=== PATIENT | male | born 1995 | race Caucasian/White ===

== ENCOUNTER 2017-06-20 08:21 | Inpatient (IN) ==
[2017-06-20] MEDS ORDERED: NS 1,000 ML IV ONE ×3 (08:25→12:33)
[2017-06-20] MEDS ORDERED: ZOFRAN IV ONE (08:26)
[2017-06-20] MEDS ORDERED: ZOFRAN ONE (08:27)
--- NOTE | 2017-06-20 08:50 | Diag Imaging Result Doc PS360 ---
CT HEAD W/O CONTRAST - 06/20/2017 INDICATION: brain attack TECHNIQUE: A CT dose reduction protocol was used. COMPARISON: None FINDINGS: The ventricles and sulci are normal in size and contour. No intracranial mass or hemorrhage. The skull is intact. The sinuses mastoids and middle ears are clear. IMPRESSION: Negative exam. Electronically signed by Timothy Pal 06/20/2017 8:48 AM
[2017-06-20 08:56] LABS: ALLEN TEST YES; BLOOD TYPE ARTERIAL; DRAW SITE R RADIAL; METHB 1.3 % (0.0-1.5); O2(CT) 19.9 mL/dL (15.0-23.0); PCO2(98.6) 36 mmHg (35-45); PO2(98.6) 83 mmHg (60-100); SAMPLE BLOOD; SAO2 97.9 % (95.0-100.0); THB 14.8 g/dL (11.5-17.4); pH(98.6) 7.35 (7.35-7.45)
[2017-06-20 08:59] LABS: MODALITY ROOM AIR
--- NOTE | 2017-06-20 09:14 | PROVIDER DOCUMENTATION ---
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 Passed out and unresponsive with multiple episode of N/V. Pt was diaphoretic and slightly responsive on ED arrival. No further info available. Severity: reports: moderate, severe Onset/Duration: reports: just prior to arrival Timing: reports: still present, improving Context: reports: found unresponsive by bystander, falling. denies: found unresponsive by family, low blood sugar, drug abuse, overdose, recent infection , fever, impaired speech, seizure activity Character of Altered Mental Status: reports: unresponsive, decreased responsiveness Any recent trauma/injury?: reports: none New weakness or altered sensation location:: reports: other (Unknown.) Associated Symptoms: reports: loss of consciousness, vomiting, other (Unknown) Similar Symptoms Previously?: No Recently seen or treated by another doctor?: No Review of Systems - Adult - REVIEW OF SYSTEMS - ADULT Constitutional: denies: chills, fever Eyes: reports: no symptoms reported Ears, Nose, Mouth & Throat: reports: no symptoms reported Cardiovascular: reports: no symptoms reported Respiratory: reports: no symptoms reported Gastrointestinal: reports: see HPI, nausea, vomiting Musculoskeletal: reports: no symptoms reported Integumentary: reports: no symptoms reported Neurological: reports: see HPI, syncope All Other Systems: Reviewed and Negative Past History - Adult - PAST MEDICAL HISTORY-ADULT Review of Records: reports: Old Records Reviewed, Nursing Assessment Review, Medications Reviewed, Social history reviewed & non-contributory. - SOCIAL HISTORY Smoking: denies Substance Use: none/never Alcohol Use Frequency: never Physical Exam- Neurological - Physical Exam-Neuro Initial Vital Signs Reviewed: Yes General Appearance: no apparent distress, obtunded, other (Pt is diaphoretic and clammy, with emesis at his shirt) Eye Exam: bilateral eye: PERRL, EOMI HENMT: normocephalic/atraumatic, moist mucous membranes Neck: non-tender, full range of motion Respiratory: chest non-tender, lungs clear, normal breath sounds, no pleuratic chest pain, no respiratory distress, no accessory muscle use Cardiovascular: normal peripheral pulses, regular rate, rhythm, no edema, no gallop Abdominal Exam: normal bowel sounds, non tender, soft, no organomegaly, no pulsatile mass Extremity: normal range of motion, non-tender, normal gait, 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 When asked to squeez my hand, he did it at R side, but no on L side.) Motor/Sensory: no motor deficit, no sensory deficit, no pronator drift Neurologic: other (See above) Integumentary: other (Warm and diapohoretic) - Glascow Coma Scale Best Eye Response: (4) open spontaneously Best Verbal Response: (3) inappropriate words Best Motor Response: (6) obeys commands Total Glascow Score: 13 Progress - PLAN OF CARE/RESULTS Progress/Plan/Lab Results: Vital Signs - 8 hr 06/20/17 09:00 06/20/17 10:19 06/20/17 11:11 Temperature 98.0 F Pulse Rate 90 84 75 Respiratory Rate 25 H 21 23 Blood Pressure 139/65 132/58 129/63 O2 Sat by Pulse Oximetry 95 100 100 06/20/17 12:11 Temperature Pulse Rate 67 Respiratory Rate 23 Blood Pressure 122/47 O2 Sat by Pulse Oximetry 97 Laboratory Results - last 24 hr 06/20/17 06/20/17 06/20/17 08:24 09:26 09:26 WBC 16.25 H RBC 4.89 Hgb 15.0 Hct 42.8 MCV 87.5 MCH 30.7 MCHC 35.0 RDW Std Deviation 13.1 Plt Count 292 MPV 10.3 Neut % (Auto) 85.2 H Lymph % (Auto) 7.3 L Hodgeman % (Auto) 6.6 Eos % (Auto) 0.7 Baso % (Auto) 0.2 Neut # (Auto) 13.84 H Lymph # (Auto) 1.19 L Hodgeman # (Auto) 1.08 H Eos # (Auto) 0.11 Baso # (Auto) 0.03 PT INR PTT (Actin FS) Specimen Type ARTERIAL Sample Site R RADIAL pH 7.35 pCO2 36 pO2 83 HCO3 21.0 Base Excess -5.0 L Oxyhemoglobin 95.4 ABG O2 Sat (Calculated) 19.9 ABG O2 Saturation 97.9 ABG Carboxyhemoglobin 1.40 ABG Methemoglobin 1.3 Jacob Test YES A-a O2 Difference 22.0 Total Hemoglobin 14.8 Lactate 5.60 H* Blood Gas Modality ROOM AIR FiO2 % 21.0 Sodium Potassium Chloride Carbon Dioxide Anion Gap BUN Creatinine Estimated GFR/1.73 m2 BUN/Creatinine Ratio Glucose POC Glucose Calculated Osmolality Calcium Magnesium Total Bilirubin AST ALT Alkaline Phosphatase Creatine Kinase Creatine Kinase Index CK-MB (CK-2) Troponin T Total Protein Albumin Globulin Albumin/Globulin Ratio Amylase Lipase Urine Source Urine Color Urine Turbidity Urine pH Ur Specific Bradley Urine Protein Ur Glucose (Stick) Ur Ketones (Stick) Urine Blood Urine Nitrite Urine Bilirubin Urobilinogen Dipstick Urine Leukocytes Urine WBC (Auto) Urine RBC (Auto) U Epithel Cells (Auto) Urine Bacteria (Auto) Urine Crystals Small Round Cells Urine Casts Urine Yeast-like Cells Urine Opiates Screen Ur Oxycodone Screen Urine Methadone Screen Ur Barbiturates Screen Ur Phencyclidine Scrn Ur Amphetamines Screen U Benzodiazepines Scrn Urine Cocaine Screen U Cannabinoids Screen Plasma/Serum Ethyl Alc 06/20/17 06/20/17 06/20/17 09:26 09:26 09:26 WBC RBC Hgb Hct MCV MCH MCHC RDW Std Deviation Plt Count MPV Neut % (Auto) Lymph % (Auto) Hodgeman % (Auto) Eos % (Auto) Baso % (Auto) Neut # (Auto) Lymph # (Auto) Hodgeman # (Auto) Eos # (Auto) Baso # (Auto) PT 11.3 INR 1.07 PTT (Actin FS) 26.6 Specimen Type Sample Site pH pCO2 pO2 HCO3 Base Excess Oxyhemoglobin ABG O2 Sat (Calculated) ABG O2 Saturation ABG Carboxyhemoglobin ABG Methemoglobin Jacob Test A-a O2 Difference Total Hemoglobin Lactate Blood Gas Modality FiO2 % Sodium 143 Potassium 4.5 Chloride 104 Carbon Dioxide 22 L Anion Gap 17 BUN 26 H Creatinine 1.4 H Estimated GFR/1.73 m2 > 60 BUN/Creatinine Ratio 19 Glucose 54 L POC Glucose Calculated Osmolality 287 Calcium 9.3 Magnesium Total Bilirubin 0.33 AST 24 ALT 28 Alkaline Phosphatase 77 Creatine Kinase 182 Creatine Kinase Index CK-MB (CK-2) Troponin T 0.015 Total Protein 7.4 Albumin 4.7 Globulin 2.7 Albumin/Globulin Ratio 1.7 Amylase 36 Lipase 39 Urine Source Urine Color Urine Turbidity Urine pH Ur Specific Bradley Urine Protein Ur Glucose (Stick) Ur Ketones (Stick) Urine Blood Urine Nitrite Urine Bilirubin Urobilinogen Dipstick Urine Leukocytes Urine WBC (Auto) Urine RBC (Auto) U Epithel Cells (Auto) Urine Bacteria (Auto) Urine Crystals Small Round Cells Urine Casts Urine Yeast-like Cells Urine Opiates Screen Ur Oxycodone Screen Urine Methadone Screen Ur Barbiturates Screen Ur Phencyclidine Scrn Ur Amphetamines Screen U Benzodiazepines Scrn Urine Cocaine Screen U Cannabinoids Screen Plasma/Serum Ethyl Alc 06/20/17 06/20/17 06/20/17 09:26 09:30 09:43 WBC RBC Hgb Hct MCV MCH MCHC RDW Std Deviation Plt Count MPV Neut % (Auto) Lymph % (Auto) Hodgeman % (Auto) Eos % (Auto) Baso % (Auto) Neut # (Auto) Lymph # (Auto) Hodgeman # (Auto) Eos # (Auto) Baso # (Auto) PT INR PTT (Actin FS) Specimen Type Sample Site pH pCO2 pO2 HCO3 Base Excess Oxyhemoglobin ABG O2 Sat (Calculated) ABG O2 Saturation ABG Carboxyhemoglobin ABG Methemoglobin Jacob Test A-a O2 Difference Total Hemoglobin Lactate Blood Gas Modality FiO2 % Sodium Potassium Chloride Carbon Dioxide Anion Gap BUN Creatinine Estimated GFR/1.73 m2 BUN/Creatinine Ratio Glucose POC Glucose 53 L Calculated Osmolality Calcium Magnesium 2.3 Total Bilirubin AST ALT Alkaline Phosphatase Creatine Kinase Creatine Kinase Index CK-MB (CK-2) Troponin T Total Protein Albumin Globulin Albumin/Globulin Ratio Amylase Lipase Urine Source CLEAN CATCH Urine Color YELLOW Urine Turbidity CLEAR Urine pH 6.5 Ur Specific Bradley 1.018 Urine Protein 70 A Ur Glucose (Stick) NEGATIVE Ur Ketones (Stick) TRACE A Urine Blood TRACE A Urine Nitrite NEGATIVE Urine Bilirubin NEGATIVE Urobilinogen Dipstick NORMAL Urine Leukocytes TRACE A Urine WBC (Auto) 10-20 A Urine RBC (Auto) <10 U Epithel Cells (Auto) >10 A Urine Bacteria (Auto) NEGATIVE Urine Crystals NONE SEEN Small Round Cells NONE SEEN Urine Casts GRANULAR PRESENT Urine Yeast-like Cells NONE SEEN Urine Opiates Screen Ur Oxycodone Screen Urine Methadone Screen Ur Barbiturates Screen Ur Phencyclidine Scrn Ur Amphetamines Screen U Benzodiazepines Scrn Urine Cocaine Screen U Cannabinoids Screen Plasma/Serum Ethyl Alc 06/20/17 06/20/17 06/20/17 09:43 11:08 11:08 WBC RBC Hgb Hct MCV MCH MCHC RDW Std Deviation Plt Count MPV Neut % (Auto) Lymph % (Auto) Hodgeman % (Auto) Eos % (Auto) Baso % (Auto) Neut # (Auto) Lymph # (Auto) Hodgeman # (Auto) Eos # (Auto) Baso # (Auto) PT INR PTT (Actin FS) Specimen Type Sample Site pH pCO2 pO2 HCO3 Base Excess Oxyhemoglobin ABG O2 Sat (Calculated) ABG O2 Saturation ABG Carboxyhemoglobin ABG Methemoglobin Jacob Test A-a O2 Difference Total Hemoglobin Lactate Blood Gas Modality FiO2 % Sodium Potassium Chloride Carbon Dioxide Anion Gap BUN Creatinine Estimated GFR/1.73 m2 BUN/Creatinine Ratio Glucose POC Glucose Calculated Osmolality Calcium Magnesium Total Bilirubin AST ALT Alkaline Phosphatase Creatine Kinase 232 H Creatine Kinase Index 1.9 CK-MB (CK-2) 4.40 Troponin T 0.102 H D Total Protein Albumin Globulin Albumin/Globulin Ratio Amylase Lipase Urine Source Urine Color Urine Turbidity Urine pH Ur Specific Bradley Urine Protein Ur Glucose (Stick) Ur Ketones (Stick) Urine Blood Urine Nitrite Urine Bilirubin Urobilinogen Dipstick Urine Leukocytes Urine WBC (Auto) Urine RBC (Auto) U Epithel Cells (Auto) Urine Bacteria (Auto) Urine Crystals Small Round Cells Urine Casts Urine Yeast-like Cells Urine Opiates Screen NONE DETECTED Ur Oxycodone Screen NONE DETECTED Urine Methadone Screen NONE DETECTED Ur Barbiturates Screen NONE DETECTED Ur Phencyclidine Scrn NONE DETECTED Ur Amphetamines Screen NONE DETECTED U Benzodiazepines Scrn NONE DETECTED Urine Cocaine Screen NONE DETECTED U Cannabinoids Screen NONE DETECTED Plasma/Serum Ethyl Alc Orders Category Date Time Status Cardiac Monitoring DIRECTED Care 06/20/17 08:24 Active Finger Stick Blood Sugar (ED) DIRECTED Care 06/20/17 08:24 Active [place] Cath Insertion ORDERED Care 06/20/17 08:26 Inactive Orthostatic Vital Signs NOW Care 06/20/17 12:36 Active Oxygen Therapy- ED Nursing DIRECTED Care 06/20/17 08:24 Active Saline Loc NOW Care 06/20/17 08:24 Active Regular Diet Diet 06/20/17 11:50 Active CHEST-PORTABLE [RAD] Stat Exams 06/20/17 08:[address] HEAD W/O CONTRAST [CT] Stat Exams 06/20/17 08:37 Completed A1C [A1C HGB W EST AVG GLUCOSE] [CHEM] Stat Lab 06/20/17 09:26 Received ABG [RESP] Routine Lab 06/20/17 08:24 Completed ALCOHOL BLOOD Stat Lab 06/20/17 09:26 Completed AMYLASE [CHEM] Stat Lab 06/20/17 09:26 Completed CBC WITH ELECTRONIC DIFF [HEME] Stat Lab 06/20/17 09:26 Completed CK PROFILE [SP CHEM] Stat Lab 06/20/17 09:26 Completed CK PROFILE [SP CHEM] Stat Lab 06/20/17 11:08 Completed COMPREHENSIVE METABOLIC PANEL [CHEM] Stat Lab 06/20/17 09:26 Completed LACTATE, PLASMA [CHEM] Stat Lab 06/20/17 11:31 Received LIPASE [CHEM] Stat Lab 06/20/17 09:26 Completed MAGNESIUM [CHEM] Stat Lab 06/20/17 09:26 Completed PROTIME WITH INR [COAG] Stat Lab 06/20/17 09:26 Completed PTT [COAG] Stat Lab 06/20/17 09:26 Completed TROPONIN T Stat Lab 06/20/17 09:26 Completed TROPONIN T Stat Lab 06/20/17 11:08 Completed TSH Timed Lab 06/20/17 12:38 Ordered UR CHLORIDE [URCHEM] Routine Lab 06/20/17 12:37 Ordered UR CREAT RANDOM [URCHEM] Timed Lab 06/20/17 12:37 Ordered UR OSMOLALITY [CHEM] Timed Lab 06/20/17 12:37 Ordered UR SODIUM [URCHEM] Timed Lab 06/20/17 12:37 Ordered URINALYSIS W/POSS RFLX CULT-1 [URINALYSIS] Stat Lab 06/20/17 09:43 Completed URINE CULTURE [RM] Routine Lab 06/20/17 10:28 Received URINE DRUG SCREEN MEDTOX Stat Lab 06/20/17 09:43 Completed URINE MANUAL MICROSCOPIC [URINALYSIS] Stat Lab 06/20/17 09:43 Completed 0.9% Sodium Chloride Inj [Ns] 1,000 ml Med 06/20/17 09:08 Discontinued IV 1,000 mls/hr 0.9% Sodium Chloride Inj [Ns] 1,000 ml Med 06/20/17 12:33 Active IV 1,000 mls/hr 0.9% Sodium Chloride Inj [Ns] 1,000 ml Med 06/20/17 08:25 Active IV 150 mls/hr CefTRIAXONE [Rocephin] 1 gm Med 06/20/17 10:44 Discontinued 0.9% Sodium Chloride Inj [Ns] 50 ml IV NOW Ondansetron [Zofran] Med 06/20/17 08:27 Discontinued 4 mg .ROUTE .STK-MED ONE Ondansetron [Zofran] Med 06/20/17 08:26 Discontinued 8 mg IV NOW ONE Pulse Oximetry Stat Oth 06/20/17 08:24 Active EKG [EKG] Stat Ther 06/20/17 08:24 Ordered EKG [EKG] Stat Ther 06/20/17 12:14 Ordered Echo Spec/Color Dop W/O Contra Routine Ther 06/20/17 12:36 Ordered Transfer/Admit Order [TRANSFER] Routine Transfer 06/20/17 12:39 Ordered Result Diagrams: 06/20/17 09:26 06/20/17 09:26 - REASSESSMENT Reassessment #1 Time Reassessed: 09:00 Status: improving (Pt woke up with A&O X 4. 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 Did not remember anything else. On PE, no focal weakness and reports no pain.) - CONSULTS/PCP/HOSPITALIST Notification #1 *Consult/PCP/Hospitalist*: Dr. Jang / Son Time Discussed: 12:41 Consult Disposition: Will see in ED, Admit Departure - Departure Date of Disposition Decision: 06/20/17 Time of Disposition Decision: 12:42 DIAGNOSIS: Syncope, Heat exhaustion, Elevated troponin Disposition: ADMITTED INPATIENT 09 Certified Medical Emergency: Emergent Condition: Stable Referrals and Follow-Ups: Montse Orantes MD [Primary Care Provider] - - Critical Care Note This patient required my direct & personal management of CC.: Yes Total Time (mins): 45 Critical Care Statement: This patient required my direct personal management to treat or rule out processes, the absence of which, could potentiallly result in sudden, clinically significant life or limb threatening deterioration. Attestation - Physician/ LUPE Attestation Patient care was provided by Advanced Practice Provider:: No The physician spent face to face time with patient:: Yes Advanced Practice Provider documentation review:: Supervising physician onsite and consulted in the evaluation and care of this patient. The physician did have a face to face encounter with the patient.
--- NOTE | 2017-06-20 09:30 | Diag Imaging Result Doc PS360 ---
CHEST-PORTABLE - 06/20/2017 INDICATION: AMS TECHNIQUE: COMPARISON: None FINDINGS: The lungs are normally expanded and clear. Heart size and mediastinal contours are normal. No pneumothorax or pleural effusion. IMPRESSION: Negative exam. Electronically signed by Timothy Pal 06/20/2017 9:27 AM
[2017-06-20 09:48] LABS: BASO% 0.2 % (0.0-0.8); EOS# 0.11 X1000 (0.0-0.7); EOS% 0.7 % (0.0-10.0); HEMATOCRIT 42.8 % (42.0-52.0); LYMPH# 1.19 X1000 (1.2-3.4); LYMPH% 7.3 % (20.5-51.1); MANUAL DIFF NEEDED? NO; MCH 30.7 PG (27-31); MCV 87.5 FL (81-99); MONO# 1.08 X1000 (0.11-0.59); MONO% 6.6 % (1.7-9.3); MPV 10.3 FL (7.4-10.4); NEUT% 85.2 % (42.2-75.2); PLT 292 X1000 (130-400); RBC 4.89 XMIL (4.7-6.1)
[2017-06-20 09:53] LABS: URINE SOURCE CLEAN CATCH
[2017-06-20 10:05] LABS: AGAP 17; ALBUMIN 4.7 g/dL (3.5-5.0); ALKALINE PHOSPHATASE 77 U/L (32-122); AMYLASE 36 U/L (20-200); BUN 26 mg/dL (8-22); CALCIUM 9.3 mg/dL (8.8-10.2); CHLORIDE 104 mmol/L (98-107); CK PROFILE 182 U/L (24-204); COSMO 287; GOT 24 U/L (10-34); GPT 28 U/L (10-44); LIPASE 39 U/L (13-60); POTASSIUM 4.5 mmol/L (3.5-5.1); SODIUM 143 mmol/L (136-145); TCO2 22 mmol/L (25-35); TOTAL BILIRUBIN 0.33 mg/dL (0.20-1.00); TOTAL PROTEIN 7.4 g/dL (6.3-8.3)
[2017-06-20 10:07] LABS: INR 1.07; PROTIME 11.3 Seconds (9.2-11.7); PTT 26.6 Seconds (22.0-36.0)
[2017-06-20 10:09] LABS: UR AMPHETAMINES MT NONE DETECTED (NONE DETECT); UR BARBITUATES MT NONE DETECTED (NONE DETECT); UR BENZODIAZ MT NONE DETECTED (NONE DETECT); UR CANNABIS MEDTOX NONE DETECTED (NONE DETECT); UR COCAINE MT NONE DETECTED (NONE DETECT); UR METHADONE MEDTOX NONE DETECTED (NONE DETECT); UR OPIATES MT NONE DETECTED (NONE DETECT); UR OXYCODONE MEDTOX NONE DETECTED (NONE DETECT); UR PCP MEDTOX NONE DETECTED (NONE DETECT)
[2017-06-20 10:24] LABS: BILIRUBIN URINE NEGATIVE (NEGATIVE); BLOOD URINE TRACE (NEGATIVE); COLOR YELLOW; GLUCOSE URINE NEGATIVE (NEGATIVE); LEUKOCYTES URINE TRACE (NEGATIVE); NITRITE URINE NEGATIVE (NEGATIVE); PH URINE 6.5; PROTEIN URINE 70 mg/dL (NEGATIVE); SP GRAVITY URINE 1.018; TURBIDITY URINE CLEAR (CLEAR); URINE MICRO REVIEW NEEDED? YES; UROBILINOGEN URINE NORMAL (NORMAL)
[2017-06-20 10:27] LABS: UR EPITHELIAL CELLS >10 /HPF (<10); URINE BACTERIA NEGATIVE /HPF; URINE CULTURE NEEDED? YES; URINE RBC <10 /HPF (<10)
[2017-06-20 10:32] LABS: URINE CASTS GRANULAR PRESENT; URINE CRYSTALS NONE SEEN; URINE SMALL ROUND CELLS NONE SEEN
[2017-06-20] MEDS ORDERED: ROCEPHIN 1 GM in NS 50 ML IV ONE (10:44)
[2017-06-20 12:30] LABS: CK INDEX 1.9 (0.0-2.5); CK-MB 4.4 ng/mL (0.0-5.0)
--- NOTE | 2017-06-20 12:41 | ED EKG INTERP ---
This chart was entered by Angela Miller Scribe, acting as scribe for Anyi Gracia MD. EKG Interpretation - EKG Time of EKG reading by physician:: 08:16 EKG Read and Signed by:: Anyi Garcia EKG Interpretation (*Must complete 3 of following elements*): Abnormal Rate: 93 (left ventricular hypertrophy ) Rhythm: NSR - EKG # 2 Time of EKG reading by physician:: 12:21 EKG Read and Signed by:: Anyi Garcia EKG Interpretation (*Must complete 3 of following elements*): Abnormal Rate: 74 (right axis deviation; nonspecific ST abnormality ) Rhythm: NSR Attestation - Physician/ LUPE Attestation Patient care was provided by Advanced Practice Provider:: No The physician spent face to face time with patient:: Yes Advanced Practice Provider documentation review:: Supervising physician onsite and consulted in the evaluation and care of this patient. The physician did have a face to face encounter with the patient. This chart was documented by the indicated scribe, (Angela Miller Scribe) and accurately reflects the services I performed and decisions made by Jose ren Wenli X, MD, as attested by the provider's signature.
[2017-06-20 13:15] LABS: UR CREAT RANDOM 122.1 mg/dL (14-26)
--- NOTE | 2017-06-20 14:20 | HISTORY AND PHYSICAL ---
CHIEF COMPLAINT: Syncope. HISTORY OF PRESENT ILLNESS: Mr. Olivares is a 22-year-old male with no known medical history who had a syncopal episode today while running a 7 K. The patient is very active and fit, he exercises on a daily basis, he had finished a 12 hour shift last night at [employer] and went running with his friends after work, and he reports at about 3-1/2 miles in he passed out. He was unconscious for actually quite some time, maybe around 30 minutes. He did not regain consciousness until he was in the ER. He denied any preceding chest pain. No palpitations, no presyncope. Prior to today he has not had any fevers or chills. No loss of consciousness. No chest pain. No shortness of breath. No orthopnea. No belly pain. No nausea, vomiting, diarrhea. No lower extremity edema. His mother is in the room and we spoke extensively regarding his history, she does report that at one point in his early youth he was told he had a heart murmur and apparently had a workup done which was reported as negative. Since that time, he has had a few different types of workups all of which did not report a heart murmur. Even as early as a few months ago for his new job there was no mention of a heart murmur on physical exam. Today, however there is a fairly significant 2/6 murmur heard through systole and on his EKG there is evidence of left ventricular hypertrophy. His laboratory data revealed mild renal insufficiency with a granular casts in his urine. He also had mildly elevated creatinine and his 2nd set of enzymes show an elevated troponin. At this time the patient is in no distress, in fact, he has no complaints at all. He is on telemetry and we are going to admit him to the hospital for further treatment and evaluation. PAST MEDICAL HISTORY: 1. Questionable history of a murmur in childhood. 2. Otherwise none. SURGICAL HISTORY: [place] teeth extraction. SOCIAL HISTORY: Patient does not smoke, drink or use drugs. He is very active. He exercises on a daily basis. He works at [employer]. He is single and has no children. He has a very supportive family at the bedside. FAMILY HISTORY: Significant for heart disease. His maternal grandfather had congestive heart failure. Paternal grandfather from small cell lung cancer, but also had coronary artery disease. He has paternal uncles who were diagnosed with premature coronary artery disease in their 30s with PR. REVIEW OF SYSTEMS: Fourteen-point review of systems was obtained and found to be negative with the exception of the HPI. PHYSICAL EXAMINATION: VITAL SIGNS: Blood pressure is 126/65, heart rate 78, respiratory rate is 21, O2 saturation 98% on room air. Temperature is 98.6 degrees. GENERAL: This is a well-developed, well-nourished, male, lying in hospital bed, in no acute distress. NEUROLOGIC: The patient is awake, alert, oriented. He follows commands without focal deficits. HEENT: Head is atraumatic, normocephalic. His pupils are equal, round, and reactive to light. His oral mucosa is moist. His trachea is midline. There is no JVD. CHEST: Clear to auscultation bilaterally. CV: Regular rate and rhythm. A 2/6 systolic ejection murmur noted. GI: Soft, nondistended, nontender. Bowel sounds are positive. EXTREMITIES: No edema, clubbing or cyanosis. Pulses are 2+ bilaterally. DIAGNOSTIC DATA: Head CT and chest x-ray are negative. EKG shows normal sinus rhythm, with left ventricular hypertrophy and T-wave inversion in the high lateral leads. Lab work: WBC 16.25, hemoglobin 15, hematocrit 42.8, platelet count 292,000, INR 1.07. ABG on room air pH 7.35, CO2 36, O2 83, bicarb 21, lactic acid 5.6. Sodium 143, potassium 4.5, chloride 104 , CO2 22, anion gap 17, BUN 26, creatinine 1.4. Glucose is 54. A1c is 5. Calcium 9.3, magnesium 2.3. Total bilirubin 0.33, AST 24, ALT 28, alkaline phosphatase 77. CK 232, CK MB 4.4, troponin 0.102. Albumin 4.7, TSH 1.49. Repeat lactic acid 1.3. UA shows ketones in blood and granular casts. Random creatinine in the urine 122, random sodium 115, random chloride 115, osmolality in the urine 672. ASSESSMENT AND PLAN: 1. Syncope: Concern at this time is for cardiac induced syncope. He has evidence of left ventricular hypertrophy on his EKG, audible murmur on physical exam, and he did have a syncopal episode during maximal exertion. We will admit the patient to the floor with telemetry, consult Cardiology and order an echocardiogram. We will continue to trend his enzymes and hydrate the patient. We have strongly advised the patient that he should not do any type of heavy exertion or physical activity until cleared to do so by Cardiology. 2. Acute kidney injury: Likely prerenal. We are going to give him fluid boluses, repeat his creatinine in the morning. 3. Lactic acidosis: Again, this is likely secondary to volume depletion. We will continue fluids and his repeat lactic acid is already within normal limits. 4. Leukocytosis: Likely reactive leukocytosis. No evidence of infection at this time. 5. Deep vein thrombosis prophylaxis. We will add with Lovenox. Further recommendations to follow. Dictated by GETACHEW Katz for Prakash Jang MD cc: GETACHEW Katz MD I have seen and examined patient. I have provided a face to face evaluation. I have discussed my findings with patient and his family (mother and 2 sisters who were at the bed side) Ass: Syncope likely from dehydration and exhaustion. Its unlikely to be cardiac but I think its reasonable to evaluate with echo. Will continue IV Fluids adequate rest continue telemonitor repeat labs for am. CHRISD
--- NOTE | 2017-06-20 16:00 | CONSULTATION ---
DATE OF CONSULTATION: 06/20/2017 Cardiology was consulted for syncope, abnormal cardiac enzymes. HISTORY OF PRESENT ILLNESS: Mr. Mark Oliavres is a 22-year-old, gentleman who is very active, was at work at [employer] last night, finished his late shift and went to do 7 K run from work. And he went for about 3-1/2 miles when he felt a bit dizzy and had a ahmet syncopal episode. He was subsequently helped with a co-runner and brought to the emergency room and was admitted. He was in the past noted to have a questionable heart murmur was, followed by Dr. 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 However there is no significant past medical history of any dizziness, syncope or chest pain. There is no history of premature sudden cardiac in the family. He however felt dehydrated and weak as well before he started this run. He does not complain of any palpitations. He has never had palpitations. He was very active through his school years, having played football, basketball, and track and field, and never had these symptoms in the past. Even at work, since has finished school he has been active and running as his usual and normal form of exercise. PAST MEDICAL/PAST SURGICAL HISTORY: [place] tooth extraction. SOCIAL HISTORY: Patient does not smoke, does not drink. There is no history of recreational drug abuse. He is very active, works out on a daily basis. He has a very supportive family. FAMILY HISTORY: His father had heart failure. Grandparents of small cell carcinoma and CAD. He has paternal uncles who were diagnosed to have premature artery disease in their 30s. REVIEW OF SYSTEMS: Fourteen point review of system was done.GI System: There is no history of nausea, vomiting, diarrhea. Central Nervous System: No focal weakness to suggest a CVA. System: There is no dysuria or hematuria. Respiratory System: There is no history of cough, expectoration, hemoptysis. There is no history of fevers or chills. Endocrine System: Stable. PHYSICAL EXAMINATION: Vital Signs: Blood pressure was 129/63. Cardiovascular System: Normal jugular venous pressure. There was no thyromegaly. No carotid bruit. First and second heart sounds were heard. There is faint systolic murmur. Respiratory System: Normal air entry. There is no crepitations or rhonchi. Abdomen: Soft, nontender. There was no guarding or rigidity. Bowel sounds were heard. Central nervous system: Alert and was moving all 4 extremities. Extremities: Examination of extremities revealed no pedal edema. HEENT: Atraumatic, normocephalic. Pupils were equal and reacting to light. LABORATORY EXAMINATION: WBC 6.25, hemoglobin 15, hematocrit 42, platelet count of 292,000. Chemistry: Sodium 143, potassium 4.5, BUN 26, creatinine 1.4. CK 182. First troponin 0.015. Second CK 232, with a CK-MB of 4.4, with a troponin abnormal at 0.102. IMAGING: Chest x-ray was unremarkable. CT scan of his head was negative. Electrocardiogram revealed normal sinus rhythm, early repolarization pattern. ASSESSMENT AND PLAN: Mr. Sanchez Olivares is a 22-year-old, gentleman, in very good health, otherwise very active, played multiple sports during his school years as well as continues to run on a regular basis. Worked 3rd shift and subsequently went to do a 7 K run, had a syncopal episode in 3-1/2 miles into running. His laboratory examination revealed a mild renal insufficiency, creatinine of 1.4, probably secondary to dehydration. As far as this episode of syncope is concerned, it is probably related to dehydration. However he has an abnormal troponin, 1st being normal, 2nd being abnormal at 0.102. He denies any chest pain. RECOMMENDATIONS: 1. We will get an echocardiogram to assess cardiac and valvular function. 2. We will get 3 more sets of serial cardiac enzymes to see the trend in his troponin as well as we will check a BMP in the morning after hydration to see what his renal function is. Further recommendations pending the renal function as well as the cardiac enzymes panel. Of note, maybe that given this we may need to rule out an anomalous coronary arteries as well to account for his symptoms. However further testing we will base on the lab work as mentioned above. Thank you for the consult. We will follow hospital course. cc: Wyatt Curry MD [facility]
[2017-06-20 16:46] LABS: CK INDEX 1.9 (0.0-2.5); CK-MB 8.64 ng/mL (0.0-5.0)
[2017-06-20] MEDS: NS 1,000 ML IV SCH (17:10)
[2017-06-20 20:21] LABS: CK INDEX 1.7 (0.0-2.5); CK-MB 9.53 ng/mL (0.0-5.0)
[2017-06-20] MEDS ORDERED: TYLENOL PO PRN (21:58)
[2017-06-20 22:46] LABS: CK INDEX 1.5 (0.0-2.5); CK-MB 9.33 ng/mL (0.0-5.0)
[2017-06-21] MEDS: NS 1,000 ML IV SCH (02:05)
[2017-06-21 03:42] LABS: CK INDEX 1.5 (0.0-2.5); CK-MB 8.16 ng/mL (0.0-5.0)
[2017-06-21 05:51] LABS: MANUAL DIFF NEEDED? NO
[2017-06-21 05:54] LABS: BASO% 0.3 % (0.0-0.8); EOS# 0.15 X1000 (0.0-0.7); HEMATOCRIT 38.5 % (42.0-52.0); HEMOGLOBIN 13.1 g/dL (14.0-18.0); IMM GRAN# 0.04 X1000 (0.0-0.04); IMM GRAN% 0.5 % (0.0-0.5); LYMPH# 1.82 X1000 (1.2-3.4); MCH 29.7 PG (27-31); MCV 87.3 FL (81-99); MONO# 0.94 X1000 (0.11-0.59); MONO% 12.4 % (1.7-9.3); MPV 10.3 FL (7.4-10.4); NEUT% 60.8 % (42.2-75.2); PLT 232 X1000 (130-400); RBC 4.41 XMIL (4.7-6.1)
[2017-06-21 06:47] LABS: AGAP 11; BUN 12 mg/dL (8-22); CALCIUM 8.2 mg/dL (8.8-10.2); CHLORIDE 103 mmol/L (98-107); COSMO 271; POTASSIUM 3.8 mmol/L (3.5-5.1); SODIUM 136 mmol/L (136-145); TCO2 22 mmol/L (25-35)
--- NOTE | 2017-06-21 11:40 | ECHO REPORT ---
ORDER DATE: 06/20/2017 ECHOCARDIOGRAPHIC MEASUREMENTS: 1. Interventricular septum 0.8, left ventricular posterior wall 0.9, diastolic diameter 5, left atrium 3.8, aorta 2.8. Normal left ventricular cavity size. Estimated ejection fraction of 65%. 2. Aortic valve leaflets are trileaflet. Mitral valve was normal. Tricuspid valve was normal. Pulmonic valve was normal. 3. Peak velocity across the aortic valve less than 2 m/sec. There is no aortic stenosis. There is trivial aortic regurgitation. There is trace mitral regurgitation. Trace pulmonary regurgitation. 4. There is trace tricuspid regurgitation. Peak velocity across the tricuspid valve was 2.7 m/sec. 5. There is no pericardial effusion or obvious intracardiac mass or thrombus seen. cc: MD Oscar Unger CRNP
[2017-06-21 12:46] VITALS: BP 120/57
--- NOTE | 2017-06-21 19:40 | DISCHARGE SUMMARY ---
ADMISSION DATE: 06/20/2017 DISCHARGE DATE: 06/21/2017 DISPOSITION: Home. FOLLOWUP: Dr. Berry. CONSULTATION DURING THIS ADMISSION: Cardiology was consulted. Patient was seen by Dr. Curry. INVASIVE PROCEDURES DONE DURING THIS ADMISSION: 1. A CT scan of the head was done, which was completely normal. 2. An echocardiogram was done, which shows an ejection fraction of 65% without any wall abnormality. ADMISSION DIAGNOSES: 1. Syncope, concern for cardiac induced. 2. Acute kidney injury. 3. Lactic acidosis. DIAGNOSES AT THE TIME OF DISCHARGE: 1. Syncope secondary to orthostatics. 2. Severe exertion. 3. Dehydration. 4. Acute kidney injury secondary to dehydration. 5. Lactic acidosis, resolved. DISCHARGE MEDICATIONS: None. PRESENTING COMPLAINT: Blackout. HISTORY OF PRESENTING COMPLAINT: Mr. Olivares is a 22-year-old, very healthy gentlemen, who normally works at night 4 days on and 4 days off. The patient went to work and then after he came out at about 6:30 in the morning, did not take any rest and went to run a marathon of 7 miles. During the marathon at about half of the distance (3.5 miles), he felt very hot and they did not know what happened to him next. He said he had people trying to shake him up, but then after that he did not know anything else until he came to the emergency department. Time spent was probably around 25-30 minutes. Upon presenting to the emergency department, he was evaluated and there was a concern that his syncope could be cardiac origin and was admitted for further medical evaluation. HOSPITAL COURSE: EKGs were done. Troponins were done. Extensive cardiac workup with monitor technician was done which was negative. Echocardiogram was also done and Cardiology was consulted. Patient also had adequate IV hydration. This morning, I spoke with Dr. Curry and he has a plan to do a stress test, which he said it can be done on outpatient basis. The patient is completely asymptomatic. Has been up, he is walking around and has not had anymore dizzy spells or any syncope. As I said, all investigations have been normal, so patient will be discharged [facility]. At the time of discharge, there are no pending labs or imaging studies. The patient has been advised to get sufficient rest and also hydrate himself very well when he is doing any of those marathon or the long-distance running. Time spent for discharge is 35 minutes. cc: Prakash Jang MD
== END 2017-06-21 14:15 | disposition home or self-care (01) ==
LOC: EDBD → ED 08:21 → 4N 13:52
PROVIDERS: ATTEND Internal Medicine